=== PATIENT | male | born 1975 ===

== ENCOUNTER 2024-07-22 01:54 | Inpatient (IN) | payer OTHER, SELFPAY ==
[2024-07-22] MEDS: traZODone HCL 50 MG TABLET PO ×2 (03:33→21:18)
[2024-07-22] MEDS: OLANZapine 5 MG TABLET PO ×2 (03:33→21:18)
[2024-07-22] MEDS: hydrOXYzine HCL 25 MG TABLET PO ×2 (03:33→21:18)
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
[2024-07-22 07:13] VITALS: BMI 33.9
[2024-07-22 07:59] VITALS: BP 132/75; PULSE 59; RESP 16; TEMP 36.5; O2SAT 100
--- NOTE | 2024-07-22 09:37 | P.HPPS_ITS ---
HPI Date of Service: 07/22/24 Chief Complaint: Major Depressive Disorder Sources of Information: patient interviewed and chart reviewed Additional Sources of Information: seen 315pm HPI Subjective Notes: [place] Warning Narrative: 48 yo male reports SI with a plan to overdose. Denies active use of recreational substances Precipitants: Homelessness Reports hx of suicide attempts-2. He presents for help to avoid an attempt Past Psychiatric History: IP: Affirms OP: [facility], [facility], Meds: Wellbutrin, Topamax, Sertraline Medical Evaluation Reviewed: Yes [facility] Medical History (Updated 07/23/24 @ 08:38 by Zohra Villasenor APRN) Depression PTSD (post-traumatic stress disorder) Anxiety HTN (hypertension) Family History: Mental Health and Substance Use hx Substance History: History, denies current use Trauma History: affirms Diagnostics Vital Signs (24Hr): Vital Signs - 24 hr 07/22/24 07:59 Temperature 97.7 F Pulse Rate 59 Respiratory Rate 16 Blood Pressure 132/75 Pulse Oximetry 100 Oxygen Delivery Method Room Air BMI result Body Mass Index 33.9 Labs 07/23/24 07:28 Labs: RBC 4.08 HGB 12.3 HCT 35.7 AST 46 Meds/Allergies Meds Home Medications ?Medication ?Instructions ?Recorded ?Confirmed ?Type buprenorphine 300 mg/1.5 mL 300 mg subcut QMONTH 07/22/24 07/22/24 History solution,exten.rel.subcutaneous syringe (Sublocade) bupropion HCl 150 mg 24 hr tablet, 150 mg PO DAILY 07/22/24 07/22/24 History extended release lisinopril 20 mg tablet 20 mg PO DAILY 07/22/24 07/22/24 History sertraline 50 mg tablet 50 mg PO DAILY 07/22/24 07/22/24 History topiramate 50 mg tablet 50 mg PO BID 07/22/24 07/22/24 History Allergies Allergies Allergy/AdvReac Type Severity Reaction Status Date / Time No Known Allergies Allergy Verified 07/22/24 04:00 Mental Status Exam Mental Status Exam Patient Appearance: Appropriate Patient Orientation: Person, Place, Time and Situation Level of Consciousness: Alert Patient Behavior: Talkative and Good Eye Contact Mood Description: Depressed Affect Description: Flat Patient Cognition Impaired: No Ability to Follow Directions: Good Speech Pattern: Spontaneous Speech Memory Description: Episodic Impaired Hallucinations: None Delusions: Not Present Thought Process: Distracted Thought Content: positive for Circumstantial and positive for Suicidal Ideation Depressive Symptoms: Thoughts of /Suicide Judgement: Fair Assessment & Plan Assessment & Plan (1) PTSD (post-traumatic stress disorder): Status: Acute Code(s): F43.10 - Post-traumatic stress disorder, unspecified (2) Depression: Status: Acute Code(s): F32.A - Depression, unspecified Plan Admit Continue regime Encourage milieu involvement Diagnostics as needed Collateral Contact Discharge planning. Patient educated on: therapeutic strategies Reason for continued inpatient stay Substantial Risk for: rapid decompensation Statement Statement: I have reviewed the history and physical and performed a pertinent examination on my patient. No changes have occurred unless specified. If the History and Physical was not performed prior to admission, the Hospitalist's service will be consulted for completing the admission physical. Time Spent With Patient Time: Total time managing care of this patient today ____ minutes.
--- NOTE | 2024-07-22 11:42 | P.CONHOSP_ITS ---
History of Present Illness Data of Consult Service Date: 07/22/24 Primary Care Provider: Unknown Physician HPI Reason for consult: Admission H&P Pt is a 48-year-old male with a PMH significant for?HTN, PTSD, anxiety, and depression who is admitted to [facility] psychiatry unit for increasing depression with SI with plan to overdose on medications or substances. Medical consult for admission H&P. ?Pt seen and evaluated in his room where he is resting comfortably in bed. Pt states he is tired as he was transferred to the facility to be very late last night, though is amenable to interview and exam. Pt reports that he follows regularly with a PCP. Currently has no acute medical complaints. Denies fever, chills, nausea, vomiting, abdominal pain. No SOB or difficulty breathing. Denies chest pain/pressure, palpitations. No headache or acute vision changes. Denies lightheadedness or dizziness. Vitals reviewed, stable and WNL. Review of Systems Review of Systems: Pt has no acute medical complaints at this time. [facility] Medical History (Updated 07/22/24 @ 16:23 by KAROLINE Mckeon) Depression PTSD (post-traumatic stress disorder) Anxiety HTN (hypertension) Social History Household Members: None Housing: Homeless Do you presently have visiting nurse or other home services: No Patient Tobacco Use Status: Current someday Tobacco user Tobacco use type: Cigarette Smoked in Last 30 Days: Yes Patient Interested in Nicotine Replacement: No Patient Given Instructions on How to Stop Smoking: No Second Hand Smoke Exposure: No Use of substances other than those prescribed or required for medical reasons: No Substance Use Type: Crack/Cocaine and Opiates Substance Use Frequency: Recent Binge Last Used Substance: Days (ago) Last Used Substance Other:: 10 years ago Currently Displaying Signs/Symptoms of Drug Intoxication Withdrawal: No Have you been hit, kicked, punched, or otherwise hurt by someone within the past year? If so, by whom?: No Do you feel safe in your current relationship?: No Current Relationship Is there a partner from a previous relationship who is making you feel unsafe now?: No Are you made to feel afraid or neglected: No Advance Directives: No Advance Directives Information Provided: Yes Do you have thoughts of harming others: None Do you have a plan to hurt others: No Plan Recently lost weight without trying: No How much weight loss: 2-13 pounds Eating poorly because of decreased appetite: Yes Nutrition screen score: 2 Nutrition Risks: No Nutritional Risk Poor oral hygiene: No Meds Allergies Allergy/AdvReac Type Severity Reaction Status Date / Time No Known Allergies Allergy Verified 07/22/24 04:00 Active Medications: Current Medications Acetaminophen (Acetaminophen 325 Mg Tablet) 650 mg PO Q6H PRN PRN Reason: Headache/Pain, Scale 1-10 Al Hydroxide/Mg Hydroxide (Magnesium Hydrox/Alum Hydrox 30 Ml Oral.Susp) 30 ml PO Q6H PRN PRN Reason: Heartburn/Nausea Hydroxyzine HCl (Hydroxyzine Hcl 25 Mg Tablet) 25 mg PO Q6H PRN PRN Reason: mild anxiety Last Admin: 07/22/24 03:33 Dose: 25 mg Magnesium Hydroxide (Milk Of Magnesia 30 Ml Oral.Susp) 30 ml PO DAILY PRN PRN Reason: Constipation Nicotine (Nicotine 21 Mg Patch.Td24) 21 mg TRANSDERMA DAILY PRN PRN Reason: smoking cessation Nicotine Polacrilex (Nicotine Polacrilex 2 Mg Gum) 4 mg BUCCAL Q2H PRN PRN Reason: Nicotine Cravings Olanzapine (Olanzapine 5 Mg Tablet) 5 mg PO TID PRN PRN Reason: agitation Last Admin: 07/22/24 03:33 Dose: 5 mg Trazodone HCl (Trazodone Hcl 50 Mg Tablet) 50 mg PO BEDTIME MRX1 PRN PRN Reason: Insomnia Last Admin: 07/22/24 03:33 Dose: 50 mg Home Medications ?Medication ?Instructions ?Recorded ?Confirmed ?Last Taken ?Type buprenorphine 300 mg/1.5 mL 300 mg subcut QMONTH 07/22/24 07/22/24 Unknown History solution,exten.rel.subcutaneous syringe (Sublocade) bupropion HCl 150 mg 24 hr tablet, 150 mg PO DAILY 07/22/24 07/22/24 Unknown History extended release lisinopril 20 mg tablet 20 mg PO DAILY 07/22/24 07/22/24 Unknown History sertraline 50 mg tablet 50 mg PO DAILY 07/22/24 07/22/24 Unknown History topiramate 50 mg tablet 50 mg PO BID 07/22/24 07/22/24 Unknown History Physical Exam Vital Signs and Narrative: Vital Signs: Last Vital Signs Temp 97.7 F 07/22/24 07:59 Pulse 59 07/22/24 07:59 Resp 16 07/22/24 07:59 BP 132/75 07/22/24 07:59 Pulse Ox 100 07/22/24 07:59 O2 Del Method Room Air 07/22/24 07:59 BMI result Body Mass Index 33.9 General: AOx3, no acute distress Resp: CTA bilaterally CVS: S1, S2, RRR GI: +BS, NT, no distention Skin: Warm, dry Neuro: Cranial nerves II-XII grossly intact bilaterally. Motor grossly intact bilaterally Extremities: No edema Psych: Flat affect Assessment and Plan (1) Medical clearance for psychiatric admission: Status: Acute Plan Pt is a 48-year-old male with a PMH significant for?HTN, PTSD, anxiety, and depression who is admitted to [facility] psychiatry unit for increasing depression with SI with plan to overdose on medications or substances. Medical consult for admission H&P. ? Mood disorder Plan as per psychiatry HTN Reasonably controlled on current regimen Continue lisinopril Pt otherwise has no acute medical complaints or chronic medical conditions. Will sign off for now. Thank you for allowing us to participate in the care of this pt. Please re-consult if any acute issue or need arises.
[2024-07-22 14:18] VITALS: BP 128/59
[2024-07-22] MEDS: lisinopriL 20 MG TABLET PO (14:18)
[2024-07-22] MEDS: Sertraline HCL 50 MG TABLET PO (14:18)
[2024-07-22 20:00] VITALS: PULSE 81; RESP 16; TEMP 36.4; O2SAT 98
[2024-07-22] MEDS: Topiramate 25 MG TABLET 50 MG PO (21:19)
[2024-07-23 07:58] VITALS: BP 115/59; PULSE 68; RESP 16; TEMP 37.1; O2SAT 94
--- NOTE | 2024-07-23 08:11 | P.PNPSI_ITS ---
Subjective Subjective Date of Service: 07/23/24 Reason For Visit: Major Depressive Disorder Interim History: Patient found in bed, lying partially under covers with eyes closed but appears to awake easily when I enter room. Says he is not sleeping, just resting. Has been isolative. I'm really just stressing...feel overwhelmed . Shares struggles with adjusting to life outside of halfway/senior living. He says he is wrapping up 8-10 yrs, got out of halfway in February and was paroled [facility] (sober living) . 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 Med compliant, denies any issues. Wellbutrin is newest medication for past 2 months, has helped a little adding it on . Anxiety is still problematic. He is not sure what else he needs. Points out that since age 19, he has only spent a total of 7 years out in the world, and has had a number of extended sentances varying from from 5 yrs to 8-10 yrs totalling 22 yrs of incarceration. During this time his . He has 3 children ages 18-26, his oldest son wont talk to him, but he has been trying to reconnect with the younger 2 and even spoke to his daughter pam . Passive SI when he arrived to the unit, denies any thoughts now, denies HI/AH/VH. Diagnostics Vital Signs (24Hr): Vital Signs - 24 hr 07/22/24 14:18 07/22/24 20:00 07/23/24 07:58 Temperature 97.6 F 98.7 F Pulse Rate 81 68 Respiratory Rate 16 16 Blood Pressure 128/59 L 115/59 L Pulse Oximetry 98 94 Oxygen Delivery Method Room Air Room Air BMI result Body Mass Index 33.9 Labs 07/23/24 07:28 Medications Medications Current Medications Acetaminophen (Acetaminophen 325 Mg Tablet) 650 mg PO Q6H PRN PRN Reason: Headache/Pain, Scale 1-10 Al Hydroxide/Mg Hydroxide (Magnesium Hydrox/Alum Hydrox 30 Ml Oral.Susp) 30 ml PO Q6H PRN PRN Reason: Heartburn/Nausea Bupropion HCl (Bupropion Hcl Xl 150 Mg Tab.Er.24h) 150 mg PO DAILY JANET Hydroxyzine HCl (Hydroxyzine Hcl 25 Mg Tablet) 25 mg PO Q6H PRN PRN Reason: mild anxiety Last Admin: 07/22/24 21:18 Dose: 25 mg Lisinopril (Lisinopril 20 Mg Tablet) 20 mg PO DAILY [facility]; Protocol Last Admin: 07/22/24 14:18 Dose: 20 mg Magnesium Hydroxide (Milk Of Magnesia 30 Ml Oral.Susp) 30 ml PO DAILY PRN PRN Reason: Constipation Nicotine (Nicotine 21 Mg Patch.Td24) 21 mg TRANSDERMA DAILY PRN PRN Reason: smoking cessation Nicotine Polacrilex (Nicotine Polacrilex 2 Mg Gum) 4 mg BUCCAL Q2H PRN PRN Reason: Nicotine Cravings Olanzapine (Olanzapine 5 Mg Tablet) 5 mg PO TID PRN PRN Reason: agitation Last Admin: 07/22/24 21:18 Dose: 5 mg Sertraline HCl (Sertraline Hcl 50 Mg Tablet) 50 mg PO DAILY [facility] Last Admin: 07/22/24 14:18 Dose: 50 mg Topiramate (Topiramate 25 Mg Tablet) 50 mg PO BID [facility] Last Admin: 07/22/24 21:19 Dose: 50 mg Trazodone HCl (Trazodone Hcl 50 Mg Tablet) 50 mg PO BEDTIME MRX1 PRN PRN Reason: Insomnia Last Admin: 07/22/24 21:18 Dose: 50 mg Allergies Allergies Allergy/AdvReac Type Severity Reaction Status Date / Time No Known Allergies Allergy Verified 07/22/24 04:00 Assessment & Plan Assessment & Plan (1) Medical clearance for psychiatric admission: Status: Acute Code(s): Z00.8 - Encounter for other general examination Plan Pt is a 48-year-old male with a PMH significant for?HTN, PTSD, anxiety, and depression who is admitted to [facility] psychiatry unit for increasing depression with SI with plan to overdose on medications or substances. Medical consult for admission H&P. ? Mood disorder Plan as per psychiatry HTN Reasonably controlled on current regimen Continue lisinopril Pt otherwise has no acute medical complaints or chronic medical conditions. Will sign off for now. Thank you for allowing us to participate in the care of this pt. Please re-consult if any acute issue or need arises. 07/23/24: continue trt Reason for continued inpatient stay Substantial Risk for: med/psych decompensation Time Spent With Patient Time: Total time managing care of this patient today ____ minutes.
[2024-07-23 08:12] LABS: Estimated Average Glucose 111 mg/dL; Hemoglobin A1C 133.8945 umol/L; Hemoglobin A1c % 5.5 % (<6.0); Total Hemoglobin (HGBA1C) 3640.6293 umol/L
[2024-07-23 08:25] LABS: Alanine Aminotransferase 27 U/L (0-40); Alkaline Phosphatase 78 U/L (39-117); Anion Gap 12 (12-20); Aspartate Amino Transferase 24 U/L (5-37); Bilirubin Total 0.2 mg/dL (0.0-1.0); Blood Urea Nitrogen 11 mg/dL (9-16); Calcium 9.2 mg/dL (8.4-10.2); Carbon Dioxide 23 mmol/L (22-29); Chloride 107 mmol/L (96-108); Creatinine Clr Calc Pharmacy 136.4; Estimated Glomerular Filt Rate > 60; Glucose Random 107 mg/dL (60-115); Potassium 4.5 mmol/L (3.3-5.1); Sodium 137 mmol/L (135-145); Total Protein 6.7 g/dL (6.5-8.0)
[2024-07-23 08:30] LABS: Cholesterol 211 mg/dL (<200); HDL Cholesterol 46 mg/dL (>40); LDL Cholesterol Calculated 117 mg/dL (<100); Triglycerides 242 mg/dL (<150)
[2024-07-23] MEDS: lisinopriL 20 MG TABLET PO (08:36)
[2024-07-23] MEDS: buPROPion HCl XL 150 MG TAB.ER.24H PO (08:36)
[2024-07-23] MEDS: Topiramate 25 MG TABLET 50 MG PO ×2 (08:36→19:59)
[2024-07-23] MEDS: Sertraline HCL 50 MG TABLET PO (08:36)
[2024-07-23 08:45] LABS: TSH reflex Free T4 0.73 uIU/mL (0.32-4.0)
--- NOTE | 2024-07-23 11:06 | MHC.RECOVRN ---
Met with pt in 506-2 after consult placed to Addiction Medicine for recent relapse on cocaine.?? Pt laying in bed, asleep, wakes to voice and accepted a brief discussion and resource folder but requested f/u discussion tomorrow? Pt A&O, cooperative and pleasant..? Pt reports that his recent relapse was on cocaine and that outside of that he has been able to maintain a period of sobriety. Left resource folder for pt and explained St[facility] resources available. Pt requests a f/u tomorrow for review of any questions on resources left. ACS services available as needed.
[2024-07-23 19:50] VITALS: BP 112/59; PULSE 68; RESP 15; TEMP 36.3; O2SAT 93
[2024-07-23] MEDS: traZODone HCL 50 MG TABLET PO (19:59)
[2024-07-23] MEDS: hydrOXYzine HCL 25 MG TABLET PO (19:59)
[2024-07-24 07:54] VITALS: BP 116/60; PULSE 61; RESP 16; TEMP 36.8; O2SAT 97
[2024-07-24] MEDS: lisinopriL 20 MG TABLET PO (08:13)
[2024-07-24] MEDS: buPROPion HCl XL 150 MG TAB.ER.24H PO (08:13)
[2024-07-24] MEDS: Topiramate 25 MG TABLET 50 MG PO ×2 (08:13→20:25)
[2024-07-24] MEDS: Sertraline HCL 50 MG TABLET PO (08:13)
--- NOTE | 2024-07-24 12:01 | P.PNPSI_ITS ---
Subjective Subjective Date of Service: 07/24/24 Reason For Visit: Major Depressive Disorder Subjective Notes: Conditional Voluntary Healthcare Proxy: No Guardianship: No Medical Problems Affecting Mental Status: No Interim History: Pt is in bed when seen. Denies current issues-presents depressed, minimally engaged. Denies SI,HI,AH, VH. Team reports pt has had a violation of his parole and will need to discuss this with his parole team upon discharge. [place] will instruct our team how to proceed when discharged. Encouraged milieu participation. Medication Compliance: Yes Side effects from medications: No Attending Groups: No Review of Systems Acute medical concerns: No Review of Systems Review of Systems Denies Mental Status Exam Mental Status Exam Patient Appearance: Fatigued Patient Orientation: Person, Place, Time and Situation Level of Consciousness: Alert Patient Behavior: Talkative, Fatigued and Poor Eye Contact Mood Description: Withdrawn and Depressed Affect Description: Withdrawn and Flat Patient Cognition Impaired: No Ability to Follow Directions: Good Speech Pattern: Spontaneous Speech Memory Description: Intact Hallucinations: None Delusions: Not Present Thought Process: Rumination Thought Content: positive for Circumstantial, positive for Perseveration and positive for Suicidal Ideation (denies) Depressive Symptoms: Thoughts of /Suicide (denies) Judgement: Good Diagnostics Vital Signs (24Hr): Vital Signs - 24 hr 07/23/24 19:50 07/24/24 07:54 Temperature 97.4 F 98.2 F Pulse Rate 68 61 Respiratory Rate 15 16 Blood Pressure 112/59 L 116/60 Pulse Oximetry 93 97 Oxygen Delivery Method Room Air BMI result Body Mass Index 33.9 Labs 07/23/24 07:28 Labs: Laboratory Results - last 48 hr 07/23/24 07:28 Sodium 137 Potassium 4.5 Chloride 107 Carbon Dioxide 23 Anion Gap 12 BUN 11 Creatinine 0.87 Estim Creat Clear Calc 136.4 Estimated GFR > 60 Random Glucose 107 Estimat Average Glucose 111 Hemoglobin A1c % 5.5 Calcium 9.2 Total Bilirubin 0.2 AST 24 ALT 27 Alkaline Phosphatase 78 Total Protein 6.7 Albumin 4.0 Triglycerides 242 H Cholesterol 211 H LDL Cholesterol, Calc 117 H HDL Cholesterol 46 TSH 0.73 Medications Medications Current Medications Acetaminophen (Acetaminophen 325 Mg Tablet) 650 mg PO Q6H PRN PRN Reason: Headache/Pain, Scale 1-10 Al Hydroxide/Mg Hydroxide (Magnesium Hydrox/Alum Hydrox 30 Ml Oral.Susp) 30 ml PO Q6H PRN PRN Reason: Heartburn/Nausea Bupropion HCl (Bupropion Hcl Xl 150 Mg Tab.Er.24h) 150 mg PO DAILY [facility] Last Admin: 07/24/24 08:13 Dose: 150 mg Hydroxyzine HCl (Hydroxyzine Hcl 25 Mg Tablet) 25 mg PO Q6H PRN PRN Reason: mild anxiety Last Admin: 07/23/24 19:59 Dose: 25 mg Lisinopril (Lisinopril 20 Mg Tablet) 20 mg PO DAILY [facility]; Protocol Last Admin: 07/24/24 08:13 Dose: 20 mg Magnesium Hydroxide (Milk Of Magnesia 30 Ml Oral.Susp) 30 ml PO DAILY PRN PRN Reason: Constipation Nicotine (Nicotine 21 Mg Patch.Td24) 21 mg TRANSDERMA DAILY PRN PRN Reason: smoking cessation Nicotine Polacrilex (Nicotine Polacrilex 2 Mg Gum) 4 mg BUCCAL Q2H PRN PRN Reason: Nicotine Cravings Olanzapine (Olanzapine 5 Mg Tablet) 5 mg PO TID PRN PRN Reason: agitation Last Admin: 07/22/24 21:18 Dose: 5 mg Sertraline HCl (Sertraline Hcl 50 Mg Tablet) 50 mg PO DAILY [facility] Last Admin: 07/24/24 08:13 Dose: 50 mg Topiramate (Topiramate 25 Mg Tablet) 50 mg PO BID [facility] Last Admin: 07/24/24 08:13 Dose: 50 mg Trazodone HCl (Trazodone Hcl 50 Mg Tablet) 50 mg PO BEDTIME MRX1 PRN PRN Reason: Insomnia Last Admin: 07/23/24 19:59 Dose: 50 mg Allergies Allergies Allergy/AdvReac Type Severity Reaction Status Date / Time No Known Allergies Allergy Verified 07/22/24 04:00 Assessment & Plan Assessment & Plan (1) Medical clearance for psychiatric admission: Status: Acute Code(s): Z00.8 - Encounter for other general examination Plan Pt is a 48-year-old male with a PMH significant for?HTN, PTSD, anxiety, and depression who is admitted to M[facility] psychiatry unit for increasing depression with SI with plan to overdose on medications or substances. Medical consult for admission H&P. ? Mood disorder Plan as per psychiatry HTN Reasonably controlled on current regimen Continue lisinopril Pt otherwise has no acute medical complaints or chronic medical conditions. Will sign off for now. Thank you for allowing us to participate in the care of this pt. Please re-consult if any acute issue or need arises. 07/23/24: continue trt 07/24/24 Continue plan of care. Reason for continued inpatient stay Substantial Risk for: rapid decompensation Time Spent With Patient Time: Total time managing care of this patient today ____ minutes.
--- NOTE | 2024-07-24 12:30 | MHC.CLN ---
NUTRITION NUTRITION CONSULT TRIGGERED DUE REPORTED TO 2-13# WEIGHT LOSS. BMI=33.9, OBESE. NO CURRENT CONCERNS NOTED WITH PO INTAKE. PLEASE CONSULT RD IF POOR PO.
--- NOTE | 2024-07-24 15:25 | MHC.RECOVRN ---
Met with pt in 506 to follow up after receiving resources yesterday. Pt laying in bed, eyes closed, wakes to voice. Pt denies questions or concerns for t/w at this time. Encouraged pt to reach out if needed.
[2024-07-24 20:00] VITALS: BP 130/86; PULSE 75; RESP 16; TEMP 36.4; O2SAT 98
[2024-07-24] MEDS: hydrOXYzine HCL 25 MG TABLET PO (20:25)
[2024-07-24] MEDS: traZODone HCL 50 MG TABLET PO (20:26)
[2024-07-25] MEDS: Topiramate 25 MG TABLET 50 MG PO ×2 (08:15→21:33)
[2024-07-25] MEDS: lisinopriL 20 MG TABLET PO (08:15)
[2024-07-25] MEDS: buPROPion HCl XL 150 MG TAB.ER.24H PO (08:15)
[2024-07-25] MEDS: Sertraline HCL 50 MG TABLET PO (08:16)
[2024-07-25 08:19] VITALS: BP 125/72; PULSE 69; RESP 18; TEMP 36.9; O2SAT 95
[2024-07-25] MEDS: OLANZapine 5 MG TABLET PO (11:10)
[2024-07-25] MEDS: Buprenorphine/Naloxone 8/2 mg FILM 1 FILM SUBLINGUAL (11:59)
--- NOTE | 2024-07-25 13:22 | HO.ADDICT_ITS ---
History of Present Illness Date of Service: 07/25/2024 Chief Complaint: Major Depressive Disorder Reason for Consult: OUD --scheduled for sublocade HPI Narrative: Patient is a 48 year old male with OUD admitted to unit with worsening depression. Consult requested as patient was scheduled to receive Sublocade injection yesterday (07/24) and due to being inpatient, was unable to receive it. Patient seen on M5, awake, alert enagegd in interview. He reports he is a patient of [facility] and has received 4 injections of 300mg Subloade already. Tolerating injection, and prefers to oral buprenorphine. Denies any withdrawal sx, however states he usually has PRN 8mg films to use through the month Past Psychiatric History: IP: Affirms OP: [facility], [facility], Meds: Wellbutrin, Topamax, Sertraline Review of Systems Constitutional: Reports as per HPI, Reports no additional constitutional complaints, Denies body ache(s), Denies chills, Denies malaise and Denies poor appetite Diagnostics Vital Signs (24Hr): Vital Signs - 24 hr 07/24/24 20:00 07/25/24 08:19 Temperature 97.5 F 98.4 F Pulse Rate 75 69 Respiratory Rate 16 18 Blood Pressure 130/86 125/72 Pulse Oximetry 98 95 Oxygen Delivery Method Room Air Room Air BMI result Body Mass Index 33.9 Labs 07/23/24 07:28 Mental Status Exam Mental Status Exam Patient Appearance: Well Grooomed and Appropriate Level of Consciousness: Awake and Appropriate Patient Behavior: Appropriate Mood Description: Calm Affect Description: Calm Ability to Follow Directions: Excellent Speech Pattern: Clear Thought Content: positive for Intact Medications Medications Current Medications Acetaminophen (Acetaminophen 325 Mg Tablet) 650 mg PO Q6H PRN PRN Reason: Headache/Pain, Scale 1-10 Al Hydroxide/Mg Hydroxide (Magnesium Hydrox/Alum Hydrox 30 Ml Oral.Susp) 30 ml PO Q6H PRN PRN Reason: Heartburn/Nausea Buprenorphine/Naloxone (Buprenorphine/Naloxone 8/2 Mg Tab.Subl) 1 tab SUBLINGUAL DAILY JANET Bupropion HCl (Bupropion Hcl Xl 150 Mg Tab.Er.24h) 150 mg PO DAILY JANET Last Admin: 07/25/24 08:15 Dose: 150 mg Hydroxyzine HCl (Hydroxyzine Hcl 25 Mg Tablet) 25 mg PO Q6H PRN PRN Reason: mild anxiety Last Admin: 07/24/24 20:25 Dose: 25 mg Lisinopril (Lisinopril 20 Mg Tablet) 20 mg PO DAILY [facility]; Protocol Last Admin: 07/25/24 08:15 Dose: 20 mg Magnesium Hydroxide (Milk Of Magnesia 30 Ml Oral.Susp) 30 ml PO DAILY PRN PRN Reason: Constipation Nicotine (Nicotine 21 Mg Patch.Td24) 21 mg TRANSDERMA DAILY PRN PRN Reason: smoking cessation Nicotine Polacrilex (Nicotine Polacrilex 2 Mg Gum) 4 mg BUCCAL Q2H PRN PRN Reason: Nicotine Cravings Olanzapine (Olanzapine 5 Mg Tablet) 5 mg PO TID PRN PRN Reason: agitation Last Admin: 07/25/24 11:10 Dose: 5 mg Sertraline HCl (Sertraline Hcl 50 Mg Tablet) 50 mg PO DAILY [facility] Last Admin: 07/25/24 08:16 Dose: 50 mg Topiramate (Topiramate 25 Mg Tablet) 50 mg PO BID [facility] Last Admin: 07/25/24 08:15 Dose: 50 mg Trazodone HCl (Trazodone Hcl 50 Mg Tablet) 50 mg PO BEDTIME MRX1 PRN PRN Reason: Insomnia Last Admin: 07/24/24 20:26 Dose: 50 mg Allergies Allergies Allergy/AdvReac Type Severity Reaction Status Date / Time No Known Allergies Allergy Verified 07/22/24 04:00 Assessment & Plan Assessment & Plan (1) Opioid use disorder: Status: Acute Code(s): F11.90 - Opioid use, unspecified, uncomplicated Assessment and Plan: * Suboxone 8mg daily--either scheduled or PRN---likelihood of withdrawal sx developing are very low right now * reports he will resume care with [facility] in [place] * no additional follow up indicated at this time Total time managing care of this patient today _25___ minutes. PMFSH Past Medical History Medical History (Updated 07/25/24 @ 13:34 by Breana Mcgee CNP) Depression PTSD (post-traumatic stress disorder) Anxiety HTN (hypertension) Social History Social History Household Members: None Housing: Homeless Do you presently have visiting nurse or other home services: No Patient Tobacco Use Status: Current someday Tobacco user Tobacco use type: Cigarette Smoked in Last 30 Days: Yes Patient Interested in Nicotine Replacement: No Patient Given Instructions on How to Stop Smoking: No Second Hand Smoke Exposure: No Use of substances other than those prescribed or required for medical reasons: No Substance Use Type: Crack/Cocaine and Opiates Substance Use Frequency: Recent Binge Last Used Substance: Days (ago) Last Used Substance Other:: 10 years ago Currently Displaying Signs/Symptoms of Drug Intoxication Withdrawal: No Have you been hit, kicked, punched, or otherwise hurt by someone within the past year? If so, by whom?: No Do you feel safe in your current relationship?: No Current Relationship Is there a partner from a previous relationship who is making you feel unsafe now?: No Are you made to feel afraid or neglected: No Advance Directives: No Advance Directives Information Provided: Yes Do you have thoughts of harming others: None Do you have a plan to hurt others: No Plan Recently lost weight without trying: No How much weight loss: 2-13 pounds Eating poorly because of decreased appetite: Yes Nutrition screen score: 2 Nutrition Risks: No Nutritional Risk Poor oral hygiene: No service: No Sexual orientation: Straight/Heterosexual
--- NOTE | 2024-07-25 16:20 | HO.PSYCHPN ---
Subjective Subjective Date of Service: 07/25/24 Reason For Visit: Major Depressive Disorder Subjective Notes: Conditional Voluntary Healthcare Proxy: No Guardianship: No Medical Problems Affecting Mental Status: No Interim History: Denies SI,HI,AH,VH. Isolative, not very interactive. Met with addiction medicine team. Suboxone 8-2 initiated as we do not have sublocade. Pt is discussing of his and estrangement from his son Team is connecting with parole team to discuss treatment options. Care discussed with Ag at [phone]. Pt has not given us his considerations for future planning at this time. [facility] team would like to pick him up upon discharge and will do a placement. Medication Compliance: Yes Side effects from medications: No Attending Groups: No Review of Systems Acute medical concerns: No Review of Systems Review of Systems Denies Mental Status Exam Mental Status Exam Patient Appearance: Fatigued Patient Orientation: Person, Place, Time and Situation Level of Consciousness: Alert Patient Behavior: Talkative, Fatigued and Poor Eye Contact Mood Description: Withdrawn and Depressed Affect Description: Withdrawn and Flat Patient Cognition Impaired: No Ability to Follow Directions: Good Speech Pattern: Spontaneous Speech Memory Description: Intact Hallucinations: None Delusions: Not Present Thought Process: Rumination Thought Content: positive for Circumstantial, positive for Perseveration and positive for Suicidal Ideation (denies) Depressive Symptoms: Thoughts of /Suicide (denies) Judgement: Good Diagnostics Vital Signs (24Hr): Vital Signs - 24 hr 07/24/24 20:00 07/25/24 08:19 Temperature 97.5 F 98.4 F Pulse Rate 75 69 Respiratory Rate 16 18 Blood Pressure 130/86 125/72 Pulse Oximetry 98 95 Oxygen Delivery Method Room Air Room Air BMI result Body Mass Index 33.9 Labs 07/23/24 07:28 Medications Medications Current Medications Acetaminophen (Acetaminophen 325 Mg Tablet) 650 mg PO Q6H PRN PRN Reason: Headache/Pain, Scale 1-10 Al Hydroxide/Mg Hydroxide (Magnesium Hydrox/Alum Hydrox 30 Ml Oral.Susp) 30 ml PO Q6H PRN PRN Reason: Heartburn/Nausea Buprenorphine/Naloxone (Buprenorphine/Naloxone 8/2 Mg Tab.Subl) 1 tab SUBLINGUAL DAILY JANET Bupropion HCl (Bupropion Hcl Xl 150 Mg Tab.Er.24h) 150 mg PO DAILY JANET Last Admin: 07/25/24 08:15 Dose: 150 mg Hydroxyzine HCl (Hydroxyzine Hcl 25 Mg Tablet) 25 mg PO Q6H PRN PRN Reason: mild anxiety Last Admin: 07/24/24 20:25 Dose: 25 mg Lisinopril (Lisinopril 20 Mg Tablet) 20 mg PO DAILY [facility]; Protocol Last Admin: 07/25/24 08:15 Dose: 20 mg Magnesium Hydroxide (Milk Of Magnesia 30 Ml Oral.Susp) 30 ml PO DAILY PRN PRN Reason: Constipation Nicotine (Nicotine 21 Mg Patch.Td24) 21 mg TRANSDERMA DAILY PRN PRN Reason: smoking cessation Nicotine Polacrilex (Nicotine Polacrilex 2 Mg Gum) 4 mg BUCCAL Q2H PRN PRN Reason: Nicotine Cravings Olanzapine (Olanzapine 5 Mg Tablet) 5 mg PO TID PRN PRN Reason: agitation Last Admin: 07/25/24 11:10 Dose: 5 mg Sertraline HCl (Sertraline Hcl 50 Mg Tablet) 50 mg PO DAILY [facility] Last Admin: 07/25/24 08:16 Dose: 50 mg Topiramate (Topiramate 25 Mg Tablet) 50 mg PO BID [facility] Last Admin: 07/25/24 08:15 Dose: 50 mg Trazodone HCl (Trazodone Hcl 50 Mg Tablet) 50 mg PO BEDTIME MRX1 PRN PRN Reason: Insomnia Last Admin: 07/24/24 20:26 Dose: 50 mg Allergies Allergies Allergy/AdvReac Type Severity Reaction Status Date / Time No Known Allergies Allergy Verified 07/22/24 04:00 Assessment & Plan Assessment & Plan (1) Opioid use disorder: Status: Acute Code(s): F11.90 - Opioid use, unspecified, uncomplicated Assessment and Plan: Suboxone 8mg daily--either scheduled or PRN---likelihood of withdrawal sx developing are very low right now reports he will resume care with [facility] in [place] no additional follow up indicated at this time (2) Depression: Status: Acute Code(s): F32.A - Depression, unspecified (3) PTSD (post-traumatic stress disorder): Status: Acute Code(s): F43.10 - Post-traumatic stress disorder, unspecified Plan 07/25- Continue current regime/plan. Work with parole team on discharge planning. Reason for continued inpatient stay Substantial Risk for: rapid decompensation Time Spent With Patient Time: Total time managing care of this patient today ____ minutes.
[2024-07-25 20:00] VITALS: BP 140/81; PULSE 74; TEMP 36.3; O2SAT 96
[2024-07-25] MEDS: traZODone HCL 50 MG TABLET PO (21:33)
[2024-07-26 08:40] VITALS: BP 122/64; PULSE 61; RESP 18; TEMP 36.4; O2SAT 93
[2024-07-26] MEDS: Topiramate 25 MG TABLET 50 MG PO ×2 (08:40→20:53)
[2024-07-26] MEDS: lisinopriL 20 MG TABLET PO (08:40)
[2024-07-26] MEDS: Sertraline HCL 50 MG TABLET PO (08:40)
[2024-07-26] MEDS: buPROPion HCl XL 150 MG TAB.ER.24H PO (08:40)
[2024-07-26] MEDS: Buprenorphine/Naloxone 8/2 mg TAB.SUBL 1 TAB SUBLINGUAL (08:40)
--- NOTE | 2024-07-26 09:32 | HO.PSYCHPN ---
Subjective Subjective Date of Service: 07/26/24 Reason For Visit: Major Depressive Disorder Subjective Notes: Conditional Voluntary Healthcare Proxy: No Guardianship: No Medical Problems Affecting Mental Status: No Interim History: Pt awake, alert, up, about, wanting to meet. Spoke of anxiety, depressive sx. Yesterday was the anniversary of his 's . Son, age 26 is currently not talking with pt. Describes being clean since Nov, [facility] for 4.5 months- doing well, attending culinary program, ankle braclet was taken off, attending regular AA/NA meetings. Mindset was changing from get high, go to jail to a more future oriented focus. 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 This was his final stress, he felt no help, a bus drove right by him-he planned an OD of Benadryl. States he has been incarcerated for 21 years and does not know himself, what he is intersted in, what he likes or what to do and he needs to learn skills. Hopes to transition to [facility] [place] or [facility]-aware that he will need CSS,TSS first. Agreed to allow team to contact parole to discuss his thoughts and see if they could assist in placement in either of these programs. Medication Compliance: Yes Side effects from medications: No Attending Groups: No Review of Systems Acute medical concerns: No Review of Systems Review of Systems Denies Mental Status Exam Mental Status Exam Patient Appearance: Appropriate Patient Orientation: Person, Place, Time and Situation Level of Consciousness: Alert Patient Behavior: Talkative, Cooperative and Good Eye Contact Mood Description: Depressed Affect Description: Flat Patient Cognition Impaired: No Ability to Follow Directions: Good Speech Pattern: Spontaneous Speech Memory Description: Intact Hallucinations: None Delusions: Not Present Perceptual Disturbances: Depersonalization and Derealization Thought Process: Rumination Thought Content: positive for Circumstantial, positive for Perseveration and positive for Suicidal Ideation (denies) Judgement: Good Diagnostics Vital Signs (24Hr): Vital Signs - 24 hr 07/25/24 20:00 07/26/24 08:40 Temperature 97.3 F 97.5 F Pulse Rate 74 61 Respiratory Rate 18 Blood Pressure 140/81 H 122/64 Pulse Oximetry 96 93 Oxygen Delivery Method Room Air Room Air BMI result Body Mass Index 33.9 Labs 07/23/24 07:28 Medications Medications Current Medications Acetaminophen (Acetaminophen 325 Mg Tablet) 650 mg PO Q6H PRN PRN Reason: Headache/Pain, Scale 1-10 Al Hydroxide/Mg Hydroxide (Magnesium Hydrox/Alum Hydrox 30 Ml Oral.Susp) 30 ml PO Q6H PRN PRN Reason: Heartburn/Nausea Buprenorphine/Naloxone (Buprenorphine/Naloxone 8/2 Mg Tab.Subl) 1 tab SUBLINGUAL DAILY [facility] Last Admin: 07/26/24 08:40 Dose: 1 tab Bupropion HCl (Bupropion Hcl Xl 150 Mg Tab.Er.24h) 150 mg PO DAILY [facility] Last Admin: 07/26/24 08:40 Dose: 150 mg Hydroxyzine HCl (Hydroxyzine Hcl 25 Mg Tablet) 25 mg PO Q6H PRN PRN Reason: mild anxiety Last Admin: 07/24/24 20:25 Dose: 25 mg Lisinopril (Lisinopril 20 Mg Tablet) 20 mg PO DAILY [facility]; Protocol Last Admin: 07/26/24 08:40 Dose: 20 mg Magnesium Hydroxide (Milk Of Magnesia 30 Ml Oral.Susp) 30 ml PO DAILY PRN PRN Reason: Constipation Nicotine (Nicotine 21 Mg Patch.Td24) 21 mg TRANSDERMA DAILY PRN PRN Reason: smoking cessation Nicotine Polacrilex (Nicotine Polacrilex 2 Mg Gum) 4 mg BUCCAL Q2H PRN PRN Reason: Nicotine Cravings Olanzapine (Olanzapine 5 Mg Tablet) 5 mg PO TID PRN PRN Reason: agitation Last Admin: 07/25/24 11:10 Dose: 5 mg Sertraline HCl (Sertraline Hcl 50 Mg Tablet) 50 mg PO DAILY [facility] Last Admin: 07/26/24 08:40 Dose: 50 mg Topiramate (Topiramate 25 Mg Tablet) 50 mg PO BID [facility] Last Admin: 07/26/24 08:40 Dose: 50 mg Trazodone HCl (Trazodone Hcl 50 Mg Tablet) 50 mg PO BEDTIME MRX1 PRN PRN Reason: Insomnia Last Admin: 07/25/24 21:33 Dose: 50 mg Allergies Allergies Allergy/AdvReac Type Severity Reaction Status Date / Time No Known Allergies Allergy Verified 07/22/24 04:00 Assessment & Plan Assessment & Plan (1) Opioid use disorder: Status: Acute Code(s): F11.90 - Opioid use, unspecified, uncomplicated Assessment and Plan: Suboxone 8mg daily--either scheduled or PRN---likelihood of withdrawal sx developing are very low right now reports he will resume care with [facility] in [place] no additional follow up indicated at this time (2) Depression: Status: Acute Code(s): F32.A - Depression, unspecified (3) PTSD (post-traumatic stress disorder): Status: Acute Code(s): F43.10 - Post-traumatic stress disorder, unspecified Plan 07/26- Work with pt and parole team on discharge planning. Reason for continued inpatient stay Substantial Risk for: rapid decompensation Time Spent With Patient Time: Total time managing care of this patient today ____ minutes.
[2024-07-26] MEDS: OLANZapine 5 MG TABLET PO ×3 (11:00→20:53)
[2024-07-26 19:35] VITALS: BP 130/73; PULSE 74; RESP 18; TEMP 36.8; O2SAT 96
[2024-07-26] MEDS: hydrOXYzine HCL 25 MG TABLET PO (20:53)
[2024-07-26] MEDS: traZODone HCL 50 MG TABLET PO (20:53)
[2024-07-27 08:00] VITALS: BP 135/85; PULSE 80; TEMP 37.2; O2SAT 97
[2024-07-27] MEDS: OLANZapine 5 MG TABLET PO ×2 (08:32→10:30)
[2024-07-27] MEDS: buPROPion HCl XL 150 MG TAB.ER.24H PO (08:32)
[2024-07-27] MEDS: Sertraline HCL 50 MG TABLET PO (08:33)
[2024-07-27] MEDS: Topiramate 25 MG TABLET 50 MG PO (08:33)
[2024-07-27] MEDS: lisinopriL 20 MG TABLET PO (08:33)
[2024-07-27] MEDS: Buprenorphine/Naloxone 8/2 mg TAB.SUBL 1 TAB SUBLINGUAL (08:55)
--- NOTE | 2024-07-27 09:49 | P.DS_ITS ---
DS: Providers Provider Date of admission: 07/22/24 01:54 Primary care physician: Unknown Physician Consults: 07/22/24 00:15 Consult to Hospitalist Routine Comment: Consulting Provider: [facility] Reason For Exam: admission physical 07/22/24 02:57 Addiction Medicine Provider Routine Consulting Provider: Addiction Covering Reason for consultation: recent relapse 07/25/24 09:04 Addiction Medicine Provider Stat Consulting Provider: Addiction Covering Reason for consultation: sublicade due 07/24. We are told we cannot provide it. ?Suboxone DS: Diagnosis Discharge Diagnosis (1) Opioid use disorder: Status: Acute (2) Depression: Status: Acute (3) PTSD (post-traumatic stress disorder): Status: Acute DS: Medications Discharge Medications Home Medications: Home Medications ?Medication ?Instructions ?Recorded ?Confirmed buprenorphine 300 mg/1.5 mL 300 mg subcut QMONTH 07/22/24 07/22/24 solution,exten.rel.subcutaneous syringe (Sublocade) bupropion HCl 150 mg 24 hr tablet, 150 mg PO DAILY 07/22/24 07/22/24 extended release lisinopril 20 mg tablet 20 mg PO DAILY 07/22/24 07/22/24 sertraline 50 mg tablet 50 mg PO DAILY 07/22/24 07/22/24 topiramate 50 mg tablet 50 mg PO BID 07/22/24 07/22/24 Previous Rx's ?Medication ?Instructions ?Recorded hydroxyzine HCl 25 mg tablet 25 mg PO Q6H PRN mild anxiety #0 07/27/24 tabs olanzapine 5 mg tablet 5 mg PO BID #0 tabs 07/27/24 olanzapine 5 mg tablet 5 mg PO TID PRN agitation #0 tabs 07/27/24 trazodone 50 mg tablet 50 mg PO BEDTIME MRX1 PRN Insomnia 07/27/24 #0 tabs Data Data Completed and Pending Completed studies during hospitalization [Text1]: 07/23/24 07:28 Sodium 137 Potassium 4.5 Chloride 107 Carbon Dioxide 23 Anion Gap 12 BUN 11 Creatinine 0.87 Estim Creat Clear Calc 136.4 Estimated GFR > 60 Random Glucose 107 Estimat Average Glucose 111 Hemoglobin A1c % 5.5 Calcium 9.2 Total Bilirubin 0.2 AST 24 ALT 27 Alkaline Phosphatase 78 Total Protein 6.7 Albumin 4.0 Triglycerides 242 H Cholesterol 211 H LDL Cholesterol, Calc 117 H HDL Cholesterol 46 TSH 0.73 DS: Summary Time Spent with Patient Time attestation: Total time managing care of this patient today ____ minutes. Discharge Plan Discharge Anticipated Discharge Date/Time: 07/27/24 11:00 Patient Disposition: Xfer Other Discharge Diagnosis: PTSD Recurrent Major Depression Opiate Use Disorder-Sublocade pt Polysubstance Use Disorder Referrals: Physician,Unknown J [Primary Care Provider] - 1 Week Discharge Medications: New trazodone 50 mg Tablet 50 mg PO BEDTIME MRX1 PRN (Reason: Insomnia) Qty: 0 0RF olanzapine 5 mg Tablet 5 mg PO TID PRN (Reason: agitation) Qty: 0 0RF olanzapine 5 mg Tablet 5 mg PO BID Qty: 0 0RF hydroxyzine HCl 25 mg Tablet 25 mg PO Q6H PRN (Reason: mild anxiety) Qty: 0 0RF Continued lisinopril 20 mg tablet 20 mg PO DAILY sertraline 50 mg tablet 50 mg PO DAILY bupropion HCl 150 mg tablet extended release 24 hr 150 mg PO DAILY topiramate 50 mg tablet 50 mg PO BID Sublocade 300 mg/1.5 mL Solution, Extended Rel Syringe 300 mg SUBCUT QMONTH Patient Comments: patient states he is due for injection on Wednesday Discharge Orders: Discharge Order (Routine); Ordered 07/27/24 Ordered By: Zohra Villasenor Diet: Advance to usual diet Activity on Discharge: As tolerated Stand Alone Forms: Patient Portal Discharge page Print Language: Irish Care Plan Goals: Mood and Behavioral Stabilization Abstinence from Substances Health Concerns: Mood and Behavioral Stabilization Abstinence from Substances Plan of Treatment: Take medications as directed Follow treatment plan that your parole team has arranged. Assessment: Pt asking for discharge. No SI,HI,AH,VH. No sx of acute psychosis or kory. [place] team requests to be involved and will transport pt for ongoing treatment, they will discuss their plan of care with pt and have asked [facility] not to make referrals for care.
[2024-07-27] MEDS: hydrOXYzine HCL 25 MG TABLET PO (10:30)
== END 2024-07-27 10:45 | disposition other institution (70) | DRG 751 ==
PROVIDERS: Admitting Provider Psychiatry & Neurology Psychiatry; Visit Provider Clinical Nurse Specialist Psychiatric/Mental Health, Adult
DX: F33.9 Major depressive disorder, recurrent, unspecified (principal); R45.851 Suicidal ideations; F11.20 Opioid dependence, uncomplicated; I10 Essential (primary) hypertension; F43.10 Post-traumatic stress disorder, unspecified; F19.90 Other psychoactive substance use, unspecified, uncomplicated; F17.210 Nicotine dependence, cigarettes, uncomplicated; Z71.6 Tobacco abuse counseling; Z79.899 Other long term (current) drug therapy
CPT/HCPCS: 36415; 80053; 80061; 83036; 84443

== ENCOUNTER → 2024-07-22 01:54 | Outpatient (BNV) | payer OTHER, SELFPAY | PROVIDERS: Admitting Provider Psychiatry & Neurology Psychiatry; Visit Provider Clinical Nurse Specialist Psychiatric/Mental Health, Adult | DX: F11.90 Opioid use, unspecified, uncomplicated (principal); F32.A Depression, unspecified; F43.10 Post-traumatic stress disorder, unspecified | CPT/HCPCS: 90792; 99231; 99232; 99499 ==

== ENCOUNTER → 2024-07-22 01:54 | Outpatient (BNV) | payer OTHER, SELFPAY | PROVIDERS: Admitting Provider Psychiatry & Neurology Psychiatry; Visit Provider Student in an Organized Health Care Education/Training Program | DX: Z00.8 Encounter for other general examination (principal) | CPT/HCPCS: 99222 ==